=== PATIENT | female | born 1950 | race Caucasian/White ===

== ENCOUNTER 2021-07-23 10:43 | Emergency (ER) | payer MEDICARE, OTHER ==
[~2021-07-23] VITALS: Ht 167.6 cm; Wt 54.5 kg
[2021-07-23 10:48] VITALS: TEMP 97.5
[2021-07-23 12:14] VITALS: BP 117/67; PULSE 70
== END 2021-07-23 12:14 | disposition home or self-care (01) ==
LOC: COL.ER 10:43
DX: M25.571 Pain in right ankle and joints of right foot (principal); Z87.891 Personal history of nicotine dependence; Z28.311 Partially vaccinated for COVID-19
CPT/HCPCS: J1885